=== PATIENT | male | born 2000 | race Caucasian/White ===

== ENCOUNTER → 2022-10-25 | Outpatient (CLI) | payer BC, OTHER | LOC: M RAD 15:12 | PROVIDERS: ATTEND Physician Assistant Medical | DX: J32.9 Chronic sinusitis, unspecified (principal) ==

== ENCOUNTER 2023-03-27 09:04 | Day surgery (SDC) | payer BC, OTHER ==
[~2023-03-27] VITALS: Ht 157.5 cm; Wt 56.6 kg
[~2023-03-27 09:04] MED LIST: ADDE30CA3 PO; CLAR10CA3 PO; MULT1TAB16 PO; NASA0.9A IN; VITA100T59 PO; ZYRTTAB8 PO; nasonex NARES
[2023-03-27] MEDS ORDERED: LR 1,000 ML IV SCH ×2 (12:15→16:30)
[2023-03-27] MEDS ORDERED: ROCURONIUM BROMIDE 50MG/5ML VIAL As Ordered ONE (12:26)
[2023-03-27] MEDS ORDERED: propofoL 200 MG/20 ML VIAL As Ordered ONE ×2 (12:26→14:49)
[2023-03-27] MEDS ORDERED: ONDANSETRON 4MG 2ML VIAL As Ordered ONE (12:26)
[2023-03-27] MEDS ORDERED: SUGAMMADEX SODIUM 500 MG/5 ML VIAL (BRIDION) As Ordered ONE (12:26)
[2023-03-27] MEDS ORDERED: LIDOCAINE 2% 100MG/5ML SDV (FOR ANES.) As Ordered ONE (12:26)
[2023-03-27] MEDS ORDERED: fentaNYL 100 MCG/2 ML INJECTION As Ordered ONE ×2 (12:44→14:38)
[2023-03-27] MEDS ORDERED: MIDAZOLAM INJ 2MG/2ML VIAL As Ordered ONE (12:44)
[2023-03-27] MEDS ORDERED: EPINEPHrine INJ 1 MG/ML 1ML AMP As Ordered ONE (13:32)
[2023-03-27] MEDS ORDERED: LIDOCAINE W/EPINEPHRINE 1% 20ML VIAL As Ordered ONE (13:32)
[2023-03-27] MEDS ORDERED: METHYLENE BLUE 0.5% (5MG/ML) 10 ML AMP (PROVAYBLUE) As Ordered ONE (13:32)
[2023-03-27] MEDS ORDERED: EPINEPHrine 1MG/ML INJ 30ML MD-VIAL As Ordered ONE (13:57)
[2023-03-27] MEDS ORDERED: ACETAMINOPHEN 1000MG 100ML IV BAG As Ordered ONE (14:07)
[2023-03-27] MEDS ORDERED: LACRILUBE (AKWA TEARS) OPHTH OINT 3.5GM As Ordered ONE (14:12)
[2023-03-27] MEDS ORDERED: PHENYLephrine 500MCG 5ML (100MCG/ML) SYRINGE As Ordered ONE (14:16)
[2023-03-27] MEDS ORDERED: oxyCODONE 5MG TAB PO PRN (16:30)
[2023-03-27] MEDS ORDERED: ONDANSETRON 4MG 2ML VIAL IV PRN (16:30)
[2023-03-27] MEDS ORDERED: fentaNYL 100 MCG/2 ML INJECTION IV PRN (16:30)
[2023-03-27 18:15] VITALS: BP 118/73
[2023-03-28] MEDS ORDERED: UNRESOLVED CLARIFICATION ENTRY XX SCH (00:01)
== END 2023-03-27 18:21 | disposition home or self-care (01) ==
LOC: M SDC 09:04 → EDSEX 09:04 → M SDC 18:21
PROVIDERS: ATTEND Otolaryngology
DX: J32.0 Chronic maxillary sinusitis (principal); J34.2 Deviated nasal septum; J32.2 Chronic ethmoidal sinusitis; J33.0 Polyp of nasal cavity; R04.0 Epistaxis; G40.909 Epilepsy, unspecified, not intractable, without status epilepticus; F41.9 Anxiety disorder, unspecified; F32.A Depression, unspecified; Z79.899 Other long term (current) drug therapy; F17.220 Nicotine dependence, chewing tobacco, uncomplicated; F12.10 Cannabis abuse, uncomplicated; F15.20 Other stimulant dependence, uncomplicated
CPT/HCPCS: 30520; 31255; 31267; 81025; 88300; 88305; C2625; J0131; J0171; J1100; J2250; J2370; J2405; J3010; Q9968

== ENCOUNTER 2023-06-14 13:27 | Inpatient (IN) | payer BC, OTHER ==
[~2023-06-14] VITALS: Ht 154.9 cm; Wt 50.1 kg
[2023-06-14 15:35] LABS: HEMATOCRIT 41.3 % (36.0-47.0); MEAN CORPUSCULAR HEMOGLOBIN 30.8 pg (27.0-33.0); MEAN CORPUSCULAR HGB CONC 33.9 g/dl (32.0-36.5); PLATELET COUNT, AUTOMATED 282 10^3/uL (150-450); RED BLOOD COUNT 4.54 10^6/uL (4.00-5.40); WHITE BLOOD COUNT 6.7 10^3/uL (4.0-10.0)
[2023-06-14 15:59] LABS: AMPHETAMINES LEVEL URINE NEGATIVE (NEGATIVE); BARBITURATES URINE NEGATIVE (NEGATIVE); BENZODIAZEPINES URINE NEGATIVE (NEGATIVE); COCAINE METABOLITE URINE NEGATIVE (NEGATIVE); METHADONE URINE NEGATIVE (NEGATIVE); OPIATES URINE NEGATIVE (NEGATIVE); PHENCYCLIDINE URINE NEGATIVE (NEGATIVE)
[2023-06-14 16:00] LABS: CANNABINOIDS URINE POSITIVE (NEGATIVE)
[2023-06-14 16:01] LABS: ETHYL ALCOHOL (ETHANOL) 0.004 % (0.000-0.010)
[2023-06-14 16:02] LABS: HCG, SERUM QUALITATIVE NEGATIVE (NEGATIVE); SALICYLATE LEVEL < 3.0 MG/DL (<30)
[2023-06-14 16:03] LABS: ACETAMINOPHEN LEVEL < 2.0 UG/ML (10.0-20.0); ALBUMIN 4.5 G/DL (3.2-5.2); ALKALINE PHOSPHATASE 38 U/L (46-116); ALT/SGPT 14 U/L (7.0-40); AST/SGOT < 8 U/L (<34); BILIRUBIN,DIRECT 0.3 MG/DL (<0.4); BILIRUBIN,TOTAL 0.7 MG/DL (0.3-1.2); BLOOD UREA NITROGEN 12 MG/DL (9-23); CALCIUM LEVEL 9.3 MG/DL (8.5-10.1); CARBON DIOXIDE LEVEL 27 MMOL/L (20-31); CHLORIDE LEVEL 102 MMOL/L (98-107); CREATININE FOR GFR 0.63 MG/DL (0.55-1.30); GLOMERULAR FILTRATION RATE > 60.0 (>60); GLUCOSE, FASTING 108 MG/DL (60-100); SODIUM LEVEL 137 MMOL/L (136-145)
[2023-06-14 16:05] LABS: THYROID STIMULATING HORMONE 0.602 uIU/ML (0.55-4.78)
[2023-06-14] MEDS ORDERED: FLUT50SP17 (19:03)
[2023-06-14] MEDS ORDERED: HOME MED LIST COMPLETE! XX SCH (19:05)
[2023-06-14] MEDS ORDERED: MED REC COMMENT (19:05)
[2023-06-14] MEDS ORDERED: NICOTINE POLACRILEX 2 MG GUM PO ONE (19:40)
[2023-06-14] MEDS ORDERED: MAALOX 30 ML SUSP *UDC PO PRN (19:45)
[2023-06-14] MEDS ORDERED: IBUPROFEN 400MG TAB PO PRN (19:45)
[2023-06-14] MEDS ORDERED: MOM 30ML SUSPENSION UDC PO PRN (19:45)
[2023-06-14] MEDS ORDERED: ACETAMINOPHEN TAB 650MG DOSE (2X325MG) PO PRN (19:45)
[2023-06-14] MEDS ORDERED: diphenhydrAMINE 25MG CAP PO PRN (19:45)
[2023-06-14 22:07] VITALS: BP 117/73; TEMP 97.1; O2SAT 97
[2023-06-14] MEDS: traZODone 50 MG TAB PO PRN (23:15)
[2023-06-15 06:23] VITALS: BP 145/84; TEMP 97.1; O2SAT 100
[2023-06-15] MEDS: CitaloPRAM (CeleXA) 10 MG TABLET PO SCH (12:07)
[2023-06-15] MEDS: PILL CUTTER 1 EACH XX PRN (12:08)
[2023-06-15] MEDS: NICOTINE 14 MG/24 HR TRANSDERMAL TD SCH (12:08)
[2023-06-15] MEDS: OLANZapine ORAL DISINTEGRATING TAB 5MG PO PRN ×2 (15:14→23:52)
[2023-06-15 16:36] VITALS: BP 130/88; TEMP 98.1; O2SAT 99
[2023-06-15] MEDS: traZODone 50 MG TAB PO PRN (23:17)
[2023-06-16 06:45] VITALS: BP 131/83; TEMP 98.2; O2SAT 100
[2023-06-16] MEDS: OLANZapine ORAL DISINTEGRATING TAB 5MG PO PRN (07:22)
[2023-06-16 07:28] LABS: CHOLESTEROL RISK RATIO 2.12 (<5); HDL CHOLESTEROL 58.7 MG/DL (>40); LDL CHOLESTEROL 56.7 MG/DL (<100); NON-HDL-C 66.3 MG/DL
[2023-06-16] MEDS: NICOTINE 14 MG/24 HR TRANSDERMAL TD SCH (10:49)
[2023-06-16] MEDS: CitaloPRAM (CeleXA) 10 MG TABLET PO SCH (10:49)
[2023-06-16] MEDS: OLANZapine 5 MG TAB PO SCH (16:02)
[2023-06-16 16:16] VITALS: BP 131/89; TEMP 97; O2SAT 100
[2023-06-17 06:40] VITALS: BP 131/81; TEMP 96.5; O2SAT 100
[2023-06-17] MEDS: NICOTINE 14 MG/24 HR TRANSDERMAL TD SCH (07:58)
[2023-06-17] MEDS: OLANZapine 5 MG TAB PO SCH (07:58)
[2023-06-17] MEDS: CitaloPRAM (CeleXA) 10 MG TABLET PO SCH (07:58)
[2023-06-17] MEDS: OLANZapine ORAL DISINTEGRATING TAB 5MG PO PRN (13:16)
[2023-06-17 16:17] VITALS: BP 127/88; TEMP 97.8; O2SAT 96
[2023-06-17] MEDS ORDERED: LORazepam 0.5 MG TAB PO ONE (17:00)
[2023-06-18] MEDS: traZODone 50 MG TAB PO PRN (02:14)
[2023-06-18 06:24] VITALS: BP 124/76; TEMP 97.2; O2SAT 99
[2023-06-18] MEDS: PILL CUTTER 1 EACH XX PRN (08:31)
[2023-06-18] MEDS: CitaloPRAM (CeleXA) 10 MG TABLET PO SCH (08:32)
[2023-06-18] MEDS: OLANZapine 10 MG TAB PO SCH (08:32)
[2023-06-18] MEDS: NICOTINE 14 MG/24 HR TRANSDERMAL TD SCH (08:33)
[2023-06-18] MEDS: OLANZapine ORAL DISINTEGRATING TAB 5MG PO PRN ×2 (09:23→15:16)
[2023-06-18] MEDS ORDERED: hydrOXYzine 50 MG TAB PO PRN (16:30)
[2023-06-18] MEDS: cloNIDine 0.1MG TABLET PO SCH (16:38)
[2023-06-18 18:00] VITALS: BP 124/85; TEMP 97; O2SAT 100
[2023-06-19] MEDS: traZODone 50 MG TAB PO PRN (01:37)
[2023-06-19] MEDS: OLANZapine ORAL DISINTEGRATING TAB 5MG PO PRN (02:49)
[2023-06-19 06:22] VITALS: BP 117/60; TEMP 96.7; O2SAT 100
[2023-06-19 08:21] VITALS: BP 117/60
[2023-06-19] MEDS: cloNIDine 0.1MG TABLET PO SCH (08:21)
[2023-06-19] MEDS: OLANZapine 10 MG TAB PO SCH (08:21)
[2023-06-19] MEDS: CitaloPRAM (CeleXA) 10 MG TABLET PO SCH (08:21)
[2023-06-19] MEDS: PILL CUTTER 1 EACH XX PRN (08:21)
[2023-06-19] MEDS: NICOTINE 14 MG/24 HR TRANSDERMAL TD SCH (08:22)
[2023-06-19] MEDS ORDERED: CLONI1TA PO (09:47)
[2023-06-19] MEDS ORDERED: NICO14PA TD (09:47)
[2023-06-19] MEDS ORDERED: CELE10TA PO (09:47)
[2023-06-19] MEDS ORDERED: OLAN1TAB20 PO (09:47)
[2023-06-19] MEDS ORDERED: TRAZ-252 PO (09:47)
== END 2023-06-19 12:27 | disposition home or self-care (01) | DRG 754 ==
LOC: M ED 13:27 → M ED INP 19:43 → M PSY 22:05
PROVIDERS: ADMIT Student in an Organized Health Care Education/Training Program; ATTEND Student in an Organized Health Care Education/Training Program
DX: F32.A Depression, unspecified (principal); F12.90 Cannabis use, unspecified, uncomplicated; F15.90 Other stimulant use, unspecified, uncomplicated; Z79.899 Other long term (current) drug therapy; Z88.0 Allergy status to penicillin; F17.200 Nicotine dependence, unspecified, uncomplicated

== ENCOUNTER 2023-07-06 16:21 | Inpatient (IN) | payer BC, OTHER ==
[~2023-07-06] VITALS: Ht 154.9 cm; Wt 55.7 kg
[~2023-07-06 16:21] MED LIST changes: +CELE10TA PO; +CLONI1TA PO; +FLUT50SP17; +MED REC COMMENT; +NICO14PA TD; +OLAN1TAB20 PO; +TRAZ-252 PO
[2023-07-06] MEDS ORDERED: BUPR150T12 PO (16:47)
[2023-07-06] MEDS ORDERED: LURA20TA PO (16:47)
[2023-07-06] MEDS ORDERED: IBUPROFEN 400MG TAB PO PRN (18:50)
[2023-07-06] MEDS ORDERED: MOM 30ML SUSPENSION UDC PO PRN (18:50)
[2023-07-06] MEDS ORDERED: ACETAMINOPHEN TAB 650MG DOSE (2X325MG) PO PRN (18:50)
[2023-07-06] MEDS ORDERED: diphenhydrAMINE 25MG CAP PO PRN (18:50)
[2023-07-06] MEDS ORDERED: PILL CUTTER 1 EACH XX PRN (19:05)
[2023-07-06] MEDS ORDERED: HOME MED LIST COMPLETE! XX SCH (19:30)
[2023-07-06] MEDS ORDERED: OLANZapine 10 MG TAB PO SCH (21:00)
[2023-07-06] MEDS: LORazepam 1 MG TAB PO PRN (21:29)
[2023-07-06] MEDS: MAALOX 30 ML SUSP *UDC PO PRN (21:40)
[2023-07-06 22:07] VITALS: BP 111/67; TEMP 97.2; O2SAT 97
[2023-07-06] MEDS: traZODone 50 MG TAB PO PRN (22:57)
[2023-07-07 06:10] VITALS: BP 114/65; TEMP 97.2; O2SAT 99
[2023-07-07] MEDS: LORATADINE 10 MG TAB PO SCH (07:53)
[2023-07-07] MEDS: NICOTINE 14 MG/24 HR TRANSDERMAL TD SCH (07:53)
[2023-07-07] MEDS ORDERED: buPROPion **XL** TABLET 150MG (WELLBUTRIN XL) PO SCH (09:00)
[2023-07-07] MEDS ORDERED: CitaloPRAM (CeleXA) 10 MG TABLET PO SCH (09:00)
[2023-07-07] MEDS: LORazepam 1 MG TAB PO PRN ×2 (11:05→17:56)
[2023-07-07] MEDS: cloNIDine 0.1MG TABLET PO PRN (15:07)
[2023-07-07 15:50] VITALS: BP 118/81; TEMP 97.9; O2SAT 97
[2023-07-07] MEDS: OLANZapine 10 MG TAB PO SCH (20:24)
[2023-07-07] MEDS: traZODone 50 MG TAB PO PRN (21:55)
[2023-07-08 06:23] VITALS: BP 98/54; TEMP 97.3; O2SAT 98
[2023-07-08] MEDS: CitaloPRAM (CeleXA) 20 MG TAB PO SCH (08:55)
[2023-07-08] MEDS: LORATADINE 10 MG TAB PO SCH (08:55)
[2023-07-08] MEDS: OLANZapine ORAL DISINTEGRATING TAB 5MG PO PRN ×2 (08:56→15:38)
[2023-07-08] MEDS: NICOTINE 14 MG/24 HR TRANSDERMAL TD SCH (08:57)
[2023-07-08] MEDS: LORazepam 1 MG TAB PO PRN (16:24)
[2023-07-08 17:10] VITALS: BP 111/75; TEMP 97.1
[2023-07-08] MEDS: OLANZapine 10 MG TAB PO SCH (21:03)
[2023-07-08] MEDS: traZODone 50 MG TAB PO PRN (21:04)
[2023-07-09 06:53] VITALS: BP 119/68; TEMP 97.9; O2SAT 98
[2023-07-09] MEDS: LORATADINE 10 MG TAB PO SCH (09:00)
[2023-07-09] MEDS: NICOTINE 14 MG/24 HR TRANSDERMAL TD SCH (09:00)
[2023-07-09] MEDS: CitaloPRAM (CeleXA) 20 MG TAB PO SCH (09:00)
[2023-07-09] MEDS: LORazepam 1 MG TAB PO PRN (11:08)
[2023-07-09 15:54] VITALS: BP 138/82; TEMP 98.2; O2SAT 98
[2023-07-09] MEDS: cloNIDine 0.1MG TABLET PO PRN (15:55)
[2023-07-09] MEDS: MAALOX 30 ML SUSP *UDC PO PRN (18:26)
[2023-07-09] MEDS: OLANZapine 10 MG TAB PO SCH (20:12)
[2023-07-10 06:05] VITALS: BP 104/58; TEMP 98.1; O2SAT 100
[2023-07-10] MEDS: NICOTINE 14 MG/24 HR TRANSDERMAL TD SCH (09:21)
[2023-07-10] MEDS: LORATADINE 10 MG TAB PO SCH (09:22)
[2023-07-10] MEDS: CitaloPRAM (CeleXA) 20 MG TAB PO SCH (09:22)
[2023-07-10] MEDS: cloNIDine 0.1MG TABLET PO PRN ×2 (10:29→20:49)
[2023-07-10 16:45] VITALS: BP 110/60; TEMP 98.4; O2SAT 96
[2023-07-10] MEDS: LORazepam 1 MG TAB PO PRN (18:48)
[2023-07-10] MEDS: OLANZapine 10 MG TAB PO SCH (20:12)
[2023-07-11 06:13] VITALS: BP 96/61; TEMP 96; O2SAT 99
[2023-07-11] MEDS: NICOTINE 14 MG/24 HR TRANSDERMAL TD SCH (09:01)
[2023-07-11] MEDS: CitaloPRAM (CeleXA) 20 MG TAB PO SCH (09:02)
[2023-07-11] MEDS: LORATADINE 10 MG TAB PO SCH (09:02)
[2023-07-11 16:20] VITALS: BP 131/76; TEMP 98.6; O2SAT 98
[2023-07-11] MEDS: cloNIDine 0.1MG TABLET PO PRN (16:21)
[2023-07-11] MEDS: LORazepam 0.5 MG TAB PO PRN (19:48)
[2023-07-11] MEDS: OLANZapine 10 MG TAB PO SCH (20:05)
[2023-07-12 06:31] VITALS: BP 110/80; TEMP 98.2; O2SAT 100
[2023-07-12] MEDS: CitaloPRAM (CeleXA) 20 MG TAB PO SCH (08:02)
[2023-07-12] MEDS: NICOTINE 14 MG/24 HR TRANSDERMAL TD SCH (08:02)
[2023-07-12] MEDS: LORATADINE 10 MG TAB PO SCH (08:02)
[2023-07-12] MEDS: MAALOX 30 ML SUSP *UDC PO PRN ×2 (13:24→18:48)
[2023-07-12] MEDS: SODIUM CHLORIDE NASAL 0.65% SPRAY BTL (OCEAN) PRN (16:28)
[2023-07-12] MEDS: cloNIDine 0.1MG TABLET PO PRN (17:23)
[2023-07-12 18:03] VITALS: BP 141/86; TEMP 97.6; O2SAT 97
[2023-07-12] MEDS: LORazepam 0.5 MG TAB PO PRN (19:04)
[2023-07-12] MEDS: OLANZapine 10 MG TAB PO SCH (20:00)
[2023-07-13 06:24] VITALS: BP 100/68; TEMP 97.4; O2SAT 97
[2023-07-13] MEDS: CitaloPRAM (CeleXA) 20 MG TAB PO SCH (08:23)
[2023-07-13] MEDS: LORATADINE 10 MG TAB PO SCH (08:23)
[2023-07-13] MEDS: NICOTINE 14 MG/24 HR TRANSDERMAL TD SCH (08:23)
[2023-07-13] MEDS: SODIUM CHLORIDE NASAL 0.65% SPRAY BTL (OCEAN) PRN ×2 (08:23→15:24)
[2023-07-13] MEDS: LORazepam 0.5 MG TAB PO PRN (14:08)
[2023-07-13] MEDS: cloNIDine 0.1MG TABLET PO PRN (15:24)
[2023-07-13 19:07] VITALS: BP 107/70; TEMP 98.2
[2023-07-13] MEDS: OLANZapine 10 MG TAB PO SCH (21:03)
[2023-07-14 06:28] VITALS: BP 98/64; TEMP 97.7; O2SAT 98
[2023-07-14] MEDS: CitaloPRAM (CeleXA) 20 MG TAB PO SCH (09:06)
[2023-07-14] MEDS: NICOTINE 14 MG/24 HR TRANSDERMAL TD SCH (09:06)
[2023-07-14] MEDS: LORATADINE 10 MG TAB PO SCH (09:06)
[2023-07-14] MEDS: LORazepam 0.5 MG TAB PO PRN ×2 (09:55→18:22)
[2023-07-14] MEDS: cloNIDine 0.1MG TABLET PO PRN (16:09)
[2023-07-14 18:17] VITALS: BP 129/70; TEMP 97.8; O2SAT 96
[2023-07-14] MEDS: MAALOX 30 ML SUSP *UDC PO PRN (19:18)
[2023-07-14] MEDS: OLANZapine 10 MG TAB PO SCH (20:11)
[2023-07-15 06:59] VITALS: BP 106/50; TEMP 96.3; O2SAT 98
[2023-07-15] MEDS: CitaloPRAM (CeleXA) 20 MG TAB PO SCH (08:27)
[2023-07-15] MEDS: LORATADINE 10 MG TAB PO SCH (08:27)
[2023-07-15] MEDS: NICOTINE 14 MG/24 HR TRANSDERMAL TD SCH (08:27)
[2023-07-15] MEDS: SODIUM CHLORIDE NASAL 0.65% SPRAY BTL (OCEAN) PRN ×2 (08:48→18:41)
[2023-07-15] MEDS: cloNIDine 0.1MG TABLET PO PRN (11:04)
[2023-07-15] MEDS: LORazepam 0.5 MG TAB PO PRN ×2 (12:50→18:56)
[2023-07-15] MEDS: MAALOX 30 ML SUSP *UDC PO PRN ×2 (13:40→18:41)
[2023-07-15 19:00] VITALS: BP 126/82; O2SAT 97
[2023-07-15] MEDS: OLANZapine 10 MG TAB PO SCH (20:17)
[2023-07-15] MEDS: diphenhydrAMINE 50MG CAP PO PRN (21:24)
[2023-07-16 07:03] VITALS: BP 101/59; TEMP 97.7; O2SAT 97
[2023-07-16] MEDS: LORATADINE 10 MG TAB PO SCH (08:27)
[2023-07-16] MEDS: CitaloPRAM (CeleXA) 20 MG TAB PO SCH (08:27)
[2023-07-16] MEDS: NICOTINE 14 MG/24 HR TRANSDERMAL TD SCH (08:27)
[2023-07-16] MEDS: SODIUM CHLORIDE NASAL 0.65% SPRAY BTL (OCEAN) PRN (08:56)
[2023-07-16] MEDS: cloNIDine 0.1MG TABLET PO PRN (10:49)
[2023-07-16] MEDS: MAALOX 30 ML SUSP *UDC PO PRN ×2 (12:41→18:55)
[2023-07-16 17:17] VITALS: BP 130/70
[2023-07-16] MEDS: LORazepam 0.5 MG TAB PO PRN (17:47)
[2023-07-16] MEDS: OLANZapine 10 MG TAB PO SCH (20:05)
[2023-07-16] MEDS: diphenhydrAMINE 50MG CAP PO PRN (20:05)
[2023-07-17] MEDS: cloNIDine 0.1MG TABLET PO PRN ×2 (05:59→16:20)
[2023-07-17 06:07] VITALS: BP 116/81; TEMP 98.6; O2SAT 99
[2023-07-17] MEDS: SODIUM CHLORIDE NASAL 0.65% SPRAY BTL (OCEAN) PRN (08:18)
[2023-07-17] MEDS: CitaloPRAM (CeleXA) 20 MG TAB PO SCH (08:19)
[2023-07-17] MEDS: LORATADINE 10 MG TAB PO SCH (08:19)
[2023-07-17] MEDS: NICOTINE 14 MG/24 HR TRANSDERMAL TD SCH (08:19)
[2023-07-17] MEDS: LORazepam 0.5 MG TAB PO PRN ×2 (10:47→20:08)
[2023-07-17 15:15] VITALS: BP 129/80; TEMP 98; O2SAT 93
[2023-07-17] MEDS: diphenhydrAMINE 50MG CAP PO PRN (20:08)
[2023-07-17] MEDS ORDERED: OLANZapine 10 MG TAB PO SCH (21:00)
[2023-07-18] MEDS: LORazepam 0.5 MG TAB PO PRN (03:07)
[2023-07-18 03:37] VITALS: BP 129/80
[2023-07-18] MEDS: cloNIDine 0.1MG TABLET PO PRN (03:37)
[2023-07-18 06:17] VITALS: BP 133/75; TEMP 98.2
[2023-07-18] MEDS: NICOTINE 14 MG/24 HR TRANSDERMAL TD SCH (08:16)
[2023-07-18] MEDS: OLANZapine 10 MG TAB PO SCH ×2 (08:16→20:11)
[2023-07-18] MEDS: LORATADINE 10 MG TAB PO SCH (08:17)
[2023-07-18] MEDS: CitaloPRAM (CeleXA) 20 MG TAB PO SCH (08:17)
[2023-07-18] MEDS: MAALOX 30 ML SUSP *UDC PO PRN (12:23)
[2023-07-18 18:34] VITALS: BP 126/81; TEMP 99.1
[2023-07-19] MEDS ORDERED: risperiDONE 0.5 MG TAB PO ONE (06:00)
[2023-07-19 06:50] VITALS: BP 139/85; TEMP 98.4; O2SAT 96
[2023-07-19] MEDS: CitaloPRAM (CeleXA) 20 MG TAB PO SCH (08:29)
[2023-07-19] MEDS: OLANZapine 10 MG TAB PO SCH (08:29)
[2023-07-19] MEDS: NICOTINE 14 MG/24 HR TRANSDERMAL TD SCH (08:29)
[2023-07-19] MEDS: LORATADINE 10 MG TAB PO SCH (08:30)
[2023-07-19] MEDS: SODIUM CHLORIDE NASAL 0.65% SPRAY BTL (OCEAN) PRN (15:33)
[2023-07-19 16:58] VITALS: BP 138/93; TEMP 98.2; O2SAT 98
[2023-07-19] MEDS ORDERED: OLANZapine ORAL DISINTEGRATING TAB 5MG PO ONE (18:20)
[2023-07-19] MEDS: hydrOXYzine 50 MG TAB PO PRN (18:32)
[2023-07-20 06:46] VITALS: BP 133/75; TEMP 99.2; O2SAT 95
[2023-07-20] MEDS: hydrOXYzine 50 MG TAB PO PRN (07:34)
[2023-07-20] MEDS: CitaloPRAM (CeleXA) 20 MG TAB PO SCH (08:13)
[2023-07-20] MEDS: NICOTINE 14 MG/24 HR TRANSDERMAL TD SCH (08:13)
[2023-07-20] MEDS: LORATADINE 10 MG TAB PO SCH (08:13)
[2023-07-20] MEDS: OLANZapine 10 MG TAB PO SCH (08:13)
[2023-07-20 16:13] VITALS: BP 151/90; TEMP 98.4; O2SAT 97
[2023-07-20] MEDS: MAALOX 30 ML SUSP *UDC PO PRN (17:58)
[2023-07-20] MEDS: SODIUM CHLORIDE NASAL 0.65% SPRAY BTL (OCEAN) PRN (22:42)
[2023-07-21 06:21] VITALS: BP 134/89; TEMP 97.7; O2SAT 97
[2023-07-21] MEDS: LORATADINE 10 MG TAB PO SCH (08:11)
[2023-07-21] MEDS: CitaloPRAM (CeleXA) 20 MG TAB PO SCH (08:11)
[2023-07-21] MEDS: OLANZapine 10 MG TAB PO SCH (08:11)
[2023-07-21] MEDS: NICOTINE 14 MG/24 HR TRANSDERMAL TD SCH (08:11)
[2023-07-21 18:00] VITALS: BP 144/89; TEMP 98
[2023-07-21 19:55] VITALS: BP 127/83
[2023-07-21] MEDS: SODIUM CHLORIDE NASAL 0.65% SPRAY BTL (OCEAN) PRN (20:39)
[2023-07-21] MEDS ORDERED: diphenhydrAMINE 50MG CAP PO ONE (21:00)
[2023-07-22 05:46] VITALS: BP 138/96; TEMP 97.8; O2SAT 97
[2023-07-22] MEDS: LORATADINE 10 MG TAB PO SCH (08:02)
[2023-07-22] MEDS: NICOTINE 14 MG/24 HR TRANSDERMAL TD SCH (08:03)
[2023-07-22] MEDS: OLANZapine 10 MG TAB PO SCH (08:03)
[2023-07-22] MEDS: CitaloPRAM (CeleXA) 20 MG TAB PO SCH (08:03)
[2023-07-22] MEDS: SODIUM CHLORIDE NASAL 0.65% SPRAY BTL (OCEAN) PRN (08:35)
[2023-07-22 18:00] VITALS: BP 132/71; TEMP 97.6
[2023-07-23 06:22] VITALS: BP 136/81; TEMP 99.1; O2SAT 95
[2023-07-23] MEDS: LORATADINE 10 MG TAB PO SCH (08:07)
[2023-07-23] MEDS: CitaloPRAM (CeleXA) 20 MG TAB PO SCH (08:07)
[2023-07-23] MEDS: OLANZapine 10 MG TAB PO SCH (08:07)
[2023-07-23] MEDS: NICOTINE 14 MG/24 HR TRANSDERMAL TD SCH (08:07)
[2023-07-23] MEDS: risperiDONE 1 MG TAB PO SCH (13:52)
[2023-07-23 16:19] VITALS: BP 134/82; TEMP 98.4; O2SAT 97
[2023-07-23] MEDS: SODIUM CHLORIDE NASAL 0.65% SPRAY BTL (OCEAN) PRN (19:04)
[2023-07-23] MEDS ORDERED: RAMELTEON 8 MG TAB (ROZEREM) PO ONE (21:00)
[2023-07-24 06:52] VITALS: BP 129/59; TEMP 98.2; O2SAT 95
[2023-07-24] MEDS: risperiDONE 1 MG TAB PO SCH (07:50)
[2023-07-24] MEDS: LORATADINE 10 MG TAB PO SCH (07:50)
[2023-07-24] MEDS: CitaloPRAM (CeleXA) 20 MG TAB PO SCH (07:50)
[2023-07-24] MEDS: NICOTINE 14 MG/24 HR TRANSDERMAL TD SCH (07:51)
[2023-07-24] MEDS ORDERED: OLANZapine 10 MG TAB PO SCH (09:00)
[2023-07-24] MEDS: ATOMOXETINE HCL 40 MG CAP (STRATTERA) PO SCH (12:04)
[2023-07-24 16:47] VITALS: BP 123/82; TEMP 97.1; O2SAT 98
[2023-07-24] MEDS: BENZTROPINE 1 MG TAB PO PRN (18:02)
[2023-07-24] MEDS ORDERED: risperiDONE 1 MG TAB PO SCH (21:00)
[2023-07-25] MEDS: BENZTROPINE 1 MG TAB PO PRN ×2 (05:46→18:00)
[2023-07-25 06:25] VITALS: BP 130/90; TEMP 98.8; O2SAT 95
[2023-07-25] MEDS: NICOTINE 14 MG/24 HR TRANSDERMAL TD SCH (08:08)
[2023-07-25] MEDS: SODIUM CHLORIDE NASAL 0.65% SPRAY BTL (OCEAN) PRN (08:08)
[2023-07-25] MEDS: risperiDONE 2 MG TAB PO SCH ×2 (08:09→20:09)
[2023-07-25] MEDS: LORATADINE 10 MG TAB PO SCH (08:09)
[2023-07-25] MEDS: CitaloPRAM (CeleXA) 20 MG TAB PO SCH (08:09)
[2023-07-25] MEDS: ATOMOXETINE HCL 40 MG CAP (STRATTERA) PO SCH (08:09)
[2023-07-25] MEDS: OLANZapine 10 MG TAB PO SCH (08:09)
[2023-07-25 16:29] VITALS: BP 126/81; TEMP 98.7; O2SAT 100
[2023-07-25] MEDS: RAMELTEON 8 MG TAB (ROZEREM) PO SCH (20:09)
[2023-07-25] MEDS: traZODone 50 MG TAB PO PRN (20:31)
[2023-07-26 06:12] VITALS: BP 134/87; TEMP 98.6; O2SAT 99
[2023-07-26] MEDS: SODIUM CHLORIDE NASAL 0.65% SPRAY BTL (OCEAN) PRN ×2 (07:58→19:28)
[2023-07-26] MEDS: LORATADINE 10 MG TAB PO SCH (08:00)
[2023-07-26] MEDS: ATOMOXETINE HCL 40 MG CAP (STRATTERA) PO SCH (08:00)
[2023-07-26] MEDS: CitaloPRAM (CeleXA) 20 MG TAB PO SCH (08:01)
[2023-07-26] MEDS: OLANZapine 10 MG TAB PO SCH (08:01)
[2023-07-26] MEDS: risperiDONE 2 MG TAB PO SCH ×2 (08:01→20:00)
[2023-07-26] MEDS: NICOTINE 14 MG/24 HR TRANSDERMAL TD SCH (08:02)
[2023-07-26] MEDS: BENZTROPINE 1 MG TAB PO PRN (12:38)
[2023-07-26] MEDS ORDERED: PALIPERIDONE PAL 234MG/1.5ML INJ (INVEGA)(FREE PSY INPT ONLY) IM ONE (14:00)
[2023-07-26 19:19] VITALS: BP 134/82; TEMP 98.5
[2023-07-26] MEDS: MAALOX 30 ML SUSP *UDC PO PRN (19:28)
[2023-07-26] MEDS: traZODone 50 MG TAB PO PRN (20:00)
[2023-07-26] MEDS: RAMELTEON 8 MG TAB (ROZEREM) PO SCH (20:00)
[2023-07-27 06:18] VITALS: BP 139/93; TEMP 99.1; O2SAT 98
[2023-07-27] MEDS: LORATADINE 10 MG TAB PO SCH (08:02)
[2023-07-27] MEDS: OLANZapine 5 MG TAB PO SCH (08:02)
[2023-07-27] MEDS: risperiDONE 2 MG TAB PO SCH ×2 (08:02→19:55)
[2023-07-27] MEDS: ATOMOXETINE HCL 40 MG CAP (STRATTERA) PO SCH (08:02)
[2023-07-27] MEDS: CitaloPRAM (CeleXA) 20 MG TAB PO SCH (08:03)
[2023-07-27] MEDS: SODIUM CHLORIDE NASAL 0.65% SPRAY BTL (OCEAN) PRN ×2 (08:03→19:51)
[2023-07-27] MEDS: NICOTINE 14 MG/24 HR TRANSDERMAL TD SCH (08:03)
[2023-07-27 10:21] VITALS: BP 133/85; TEMP 98.6; O2SAT 99
[2023-07-27 16:20] VITALS: BP 122/84; TEMP 98.7; O2SAT 98
[2023-07-27] MEDS: BENZTROPINE 1 MG TAB PO PRN (18:41)
[2023-07-27] MEDS ORDERED: IBUPROFEN 400MG TAB PO PRN (19:45)
[2023-07-27] MEDS: MAALOX 30 ML SUSP *UDC PO PRN (19:51)
[2023-07-27] MEDS: RAMELTEON 8 MG TAB (ROZEREM) PO SCH (19:55)
[2023-07-28 06:32] VITALS: BP 130/77; TEMP 98.9; O2SAT 99
[2023-07-28] MEDS: SODIUM CHLORIDE NASAL 0.65% SPRAY BTL (OCEAN) PRN ×2 (08:06→20:00)
[2023-07-28] MEDS: risperiDONE 2 MG TAB PO SCH ×2 (08:07→20:00)
[2023-07-28] MEDS: NICOTINE 14 MG/24 HR TRANSDERMAL TD SCH (08:07)
[2023-07-28] MEDS: OLANZapine 5 MG TAB PO SCH (08:07)
[2023-07-28] MEDS: ATOMOXETINE HCL 40 MG CAP (STRATTERA) PO SCH (08:07)
[2023-07-28] MEDS: CitaloPRAM (CeleXA) 20 MG TAB PO SCH (08:07)
[2023-07-28] MEDS: LORATADINE 10 MG TAB PO SCH (08:07)
[2023-07-28 16:18] VITALS: BP 134/78; TEMP 98.7; O2SAT 98
[2023-07-28] MEDS: BENZTROPINE 1 MG TAB PO PRN (18:25)
[2023-07-28] MEDS: RAMELTEON 8 MG TAB (ROZEREM) PO SCH (20:00)
[2023-07-28] MEDS: traZODone 50 MG TAB PO PRN (20:00)
[2023-07-29 06:28] VITALS: BP 143/85; TEMP 98.4; O2SAT 98
[2023-07-29] MEDS: OLANZapine 5 MG TAB PO SCH (08:02)
[2023-07-29] MEDS: CitaloPRAM (CeleXA) 20 MG TAB PO SCH (08:02)
[2023-07-29] MEDS: NICOTINE 14 MG/24 HR TRANSDERMAL TD SCH (08:02)
[2023-07-29] MEDS: risperiDONE 2 MG TAB PO SCH ×2 (08:02→19:59)
[2023-07-29] MEDS: ATOMOXETINE HCL 40 MG CAP (STRATTERA) PO SCH (08:02)
[2023-07-29] MEDS: LORATADINE 10 MG TAB PO SCH (08:02)
[2023-07-29] MEDS ORDERED: PALIPERIDONE PAL 156MG/1ML INJ(INVEGA)(FREE PSY INPT ONLY) IM ONE ×2 (09:00→11:00)
[2023-07-29] MEDS: BENZTROPINE 1 MG TAB PO PRN (15:48)
[2023-07-29 16:15] VITALS: BP 116/82; TEMP 98.8; O2SAT 98
[2023-07-29] MEDS: RAMELTEON 8 MG TAB (ROZEREM) PO SCH (19:59)
[2023-07-29] MEDS: traZODone 50 MG TAB PO PRN (20:35)
[2023-07-30 06:30] VITALS: BP 132/68; TEMP 98.3; O2SAT 98
[2023-07-30 07:53] VITALS: BP 132/68; TEMP 98.3; O2SAT 98
[2023-07-30] MEDS: LORATADINE 10 MG TAB PO SCH (08:02)
[2023-07-30] MEDS: risperiDONE 2 MG TAB PO SCH (08:02)
[2023-07-30] MEDS: OLANZapine 5 MG TAB PO SCH (08:02)
[2023-07-30] MEDS: CitaloPRAM (CeleXA) 20 MG TAB PO SCH (08:02)
[2023-07-30] MEDS: ATOMOXETINE HCL 40 MG CAP (STRATTERA) PO SCH (08:02)
[2023-07-30] MEDS: NICOTINE 14 MG/24 HR TRANSDERMAL TD SCH (08:03)
[2023-07-30] MEDS ORDERED: TRAZ-252 PO (10:33)
[2023-07-30] MEDS ORDERED: CELE20TA PO (10:33)
[2023-07-30] MEDS ORDERED: RISP-9 PO (10:33)
[2023-07-30] MEDS ORDERED: ATOM40CA9 PO (10:33)
[2023-07-30] MEDS ORDERED: INVE234I IM (10:33)
[2023-07-30] MEDS ORDERED: BENZ1TAB5 PO (10:33)
[2023-07-30] MEDS ORDERED: OLAN1TAB16 PO (10:33)
[2023-07-30] MEDS ORDERED: RAME8TAB2 PO (10:33)
[2023-07-30] MEDS ORDERED: NICO14PA TD (10:33)
== END 2023-07-30 11:41 | disposition home or self-care (01) | DRG 885 ==
LOC: M ED 16:21 → M ED INP 18:48 → M PSY 21:19
PROVIDERS: ADMIT Psychiatry & Neurology Psychiatry; ATTEND Student in an Organized Health Care Education/Training Program
DX: F25.1 Schizoaffective disorder, depressive type (principal); R45.851 Suicidal ideations; F41.1 Generalized anxiety disorder; F90.9 Attention-deficit hyperactivity disorder, unspecified type; Z91.52 Personal history of nonsuicidal self-harm; F12.90 Cannabis use, unspecified, uncomplicated; F17.290 Nicotine dependence, other tobacco product, uncomplicated; Z88.1 Allergy status to other antibiotic agents; Z79.899 Other long term (current) drug therapy; Z88.8 Allergy status to other drugs, medicaments and biological substances

== ENCOUNTER 2025-03-11 11:53 | Emergency (ER) | payer BC, OTHER ==
[~2025-03-11] VITALS: Ht 157.5 cm; Wt 56.9 kg
[~2025-03-11 11:53] MED LIST changes: +ATOM40CA9 PO; +BENZ1TAB5 PO; +BUPR150T12 PO; +CELE20TA PO; -FLUT50SP17; +FLUTISP; +INVE234I IM; +LURA20TA PO; +OLAN1TAB16 PO; +RAME8TAB2 PO; +RISP-106 PO
[2025-03-11 12:41] LABS: HEMATOCRIT 39.4 % (36.0-47.0); HEMOGLOBIN 13.2 g/dl (12.0-15.5); MEAN CORPUSCULAR HEMOGLOBIN 31.1 pg (27.0-33.0); MEAN CORPUSCULAR HGB CONC 33.5 g/dl (32.0-36.5); MEAN CORPUSCULAR VOLUME 92.9 fl (80.0-96.0); PLATELET COUNT, AUTOMATED 185 10^3/uL (150-450); RED BLOOD COUNT 4.24 10^6/uL (4.00-5.40); WHITE BLOOD COUNT 5.4 10^3/uL (4.0-10.0)
[2025-03-11 13:11] LABS: AMPHETAMINES LEVEL URINE NEGATIVE (NEGATIVE); BARBITURATES URINE NEGATIVE (NEGATIVE); BENZODIAZEPINES URINE NEGATIVE (NEGATIVE); COCAINE METABOLITE URINE NEGATIVE (NEGATIVE); METHADONE URINE NEGATIVE (NEGATIVE)
[2025-03-11 13:12] LABS: CANNABINOIDS URINE NEGATIVE (NEGATIVE); OPIATES URINE NEGATIVE (NEGATIVE); PHENCYCLIDINE URINE NEGATIVE (NEGATIVE)
[2025-03-11 13:13] LABS: ETHYL ALCOHOL (ETHANOL) 0.004 % (0.000-0.010)
[2025-03-11 13:15] LABS: ALBUMIN 4.1 G/DL (3.2-5.2); ALKALINE PHOSPHATASE 38 U/L (35-104); ALT/SGPT 12 U/L (7.0-40); AST/SGOT < 8 U/L (<34); BILIRUBIN,DIRECT 0.2 MG/DL (<0.4); BILIRUBIN,TOTAL 0.5 MG/DL (0.3-1.2); BLOOD UREA NITROGEN 8 MG/DL (9-23); CALCIUM LEVEL 9.3 MG/DL (8.5-10.1); CARBON DIOXIDE LEVEL 30 MMOL/L (20-31); CHLORIDE LEVEL 104 MMOL/L (98-107); CREATININE FOR GFR 0.56 MG/DL (0.55-1.30); GLOMERULAR FILTRATION RATE > 90.0 (>60); GLUCOSE, FASTING 95 MG/DL (60-100); POTASSIUM SERUM 4.1 MMOL/L (3.5-5.1); SALICYLATE LEVEL < 3.0 MG/DL (<30); SODIUM LEVEL 140 MMOL/L (136-145); TOTAL PROTEIN 6.8 G/DL (5.7-8.2)
[2025-03-11 13:17] LABS: HCG, SERUM QUALITATIVE NEGATIVE (NEGATIVE)
[2025-03-11 16:34] VITALS: BP 110/70; TEMP 97.6; O2SAT 100
[2025-03-11] MEDS ORDERED: LUMA42CA PO (16:34)
[2025-03-11] MEDS ORDERED: CITA30CA PO (16:34)
[2025-03-11] MEDS ORDERED: TRAZ-186 PO (16:34)
[2025-03-11] MEDS ORDERED: BUPR1SUB33 PO (16:34)
[2025-03-11] MEDS ORDERED: HOME MED LIST COMPLETE! XX SCH (16:35)
== END 2025-03-11 16:43 | disposition home or self-care (01) ==
LOC: M ED 11:53
DX: F32.A Depression, unspecified (principal); F90.9 Attention-deficit hyperactivity disorder, unspecified type; F19.10 Other psychoactive substance abuse, uncomplicated; F12.10 Cannabis abuse, uncomplicated; F17.290 Nicotine dependence, other tobacco product, uncomplicated; Z88.0 Allergy status to penicillin; Z88.1 Allergy status to other antibiotic agents